=== PATIENT | female | born 1995 | race Caucasian/White ===

== ENCOUNTER 2018-05-04 17:19 | Inpatient (IN) | payer OTHER ==
[2018-04-08 05:25] VITALS: BMI 33.1
--- NOTE | 2018-05-04 18:19 | OBADHP ---
Datetime: 05/04/2018 18:06 Admit Comment, IP Provider: with IUP at 37+3 weeks, patient reports mild headache and contracti ons + FM, - LOF + CTX - VB denies chest pain, shortness of breath, N/V, visual complaints POB: 2012 feamle 6lb 3oz, 2013 male 8lb 11oz, denies any complcations in prior pregnancies PGYN: LMP 08/19/17, denies STIs, normal paps PMH: anxiety, unknown cardiac history though reports she is undergoing evaluation with Dr. Adalberto Gutiérrez with [facility] PSH: tonsilectomy in childhood family history: multiple members with anxiety and depression, paternal grandmother with cervical c ancer NKDA Meds: PNV, was taking anxiety med - unknown name - stopped in prengnacy SVE: 1/L/P DTRs normal Plan: IOL for gHTN with cervidil prenatals pending EFM/TOCO/NPO tylenol PRN headache PIH labs pain medicaion/epidural PRN case reviewed with Dr. Carolina Villarreal plan of care explained to patient and family at bedside Pelvic Type - PN: Adequate Extremities - PN: Normal Abdomen - PN: Normal Back - PN: Normal Breast - PN: Not Done Lungs - PN: Not Done Heart - PN: Normal Thyroid - PN: Not Done Neurologic - PN: Normal HEENT - PN: Normal General - PN: Normal FHR - Baseline A Provider: 140s Vital Signs Provider: Reviewed IP Chief Complaint: Uterine contractions; Signs/Symptoms Gestational HTN NICHD Variability Prov Fetus A: Moderate 6-25bpm NICHD Accel Fetus A IP Provider: 15X15 FHR Category Provider Fetus A: Category I Dilatation, Provider: 1 Effacement, Provider: long Station, Provider: post Genitourinary Exam: Normal DTRs - PN: Normal EGA AdmitDate IP: 37.3 IP Adm Impression: Term, intrauterine IP Admit Plan: Admit to unit; Initiate labor induction protocol Datetime: 04/08/2018 06:27 Presentation-Admit: Vertex Membranes, Provider: Intact Contraction Comments Provider: irritiablity Comments, ACOG Physical Exam: BACK no CVA abd; soft, nt, no papapbel ctx, no guarind, no reoubnd tendner o rigityd, no rutierin tenrnedere Gestation - Est Wks by US: 33.5 NICHD Decel Fetus A IP Provider: None
[2018-05-04] MEDS: Lactated Ringer's 1,000 ML IV SCH (18:35)
--- NOTE | 2018-05-04 19:07 | OBPN ---
Datetime: 05/04/2018 18:06 IP Progress Impression: Normal progression of labor IP Informed Consent Obtain: Induction of Labor IP Procedures: Sterile Vag Exam IP Progress Plan: Continue present management FHR - Baseline A Provider: 140s IP Progress Note Comment: cervidil placed at 7am all questions answered continue EFM/TOCO labs drawn, results pending cont current plan Vital Signs Provider: Reviewed NICHD Accel Fetus A IP Provider: 15X15 FHR Category Provider Fetus A: Category I NICHD Variability Prov Fetus A: Moderate 6-25bpm Dilatation, Provider: 1 Effacement, Provider: long Station, Provider: post Datetime: 04/08/2018 06:27 Membranes, Provider: Intact Contraction Comments Provider: irritiablity Gestation - Est Wks by US: 33.5 Presentation-Admit: Vertex NICHD Decel Fetus A IP Provider: None
[2018-05-04 19:55] LABS: BASO # 0.1 K/uL (0.0-0.2); BASO % 0.6 % (0.0-2.0); EOS % 0.3 % (0.0-4.0); HEMOGLOBIN 9.9 g/dL (11.0-16.0); LYMPH # 1.4 K/uL (1.0-4.3); LYMPH % 13.1 % (20.0-40.0); MEAN CELL VOLUME 79.3 fL (81.0-99.0); MEAN CORPUSCULAR HEMOGLOBIN 26.3 pg (27.0-31.0); MEAN CORPUSCULAR HGB CONC 33.2 g/dL (33.0-37.0); MEAN PLATELET VOLUME 9.8 fL (7.2-11.7); MONO # 0.7 K/uL (0.0-0.8); MONO % 6.3 % (0.0-10.0); NEUT # 8.5 K/uL (1.8-7.0); NEUT % 79.7 % (50.0-75.0); NRBC % 0.1 % (0.0-2.0); RBC 3.77 Mil/uL (3.80-5.20); RED CELL DISTRIBUTION WIDTH 15.3 % (11.5-14.5); WHITE BLOOD COUNT 10.7 K/uL (4.8-10.8)
[2018-05-04 20:02] LABS: SQUAMOUS EPITHIAL 19 /hpf (0-5); URINE BACTERIA OCC (<OCC); URINE BILIRUBIN NEGATIVE (NEGATIVE); URINE BLOOD NEGATIVE (NEGATIVE); URINE CLARITY Hazy (Clear); URINE COLOR Yellow (YELLOW); URINE GLUCOSE (UA) NORMAL (Normal); URINE LEUKOCYTE ESTERASE 1+ Leu/uL (Negative); URINE PROTEIN NEGATIVE (NEGATIVE); URINE UROBILINOGEN NORMAL mg/dL (0.2-1.0)
[2018-05-04 20:04] LABS: INR 1.1; PROTHROMBIN TIME 11.7 SECONDS (9.7-12.2)
[2018-05-04 20:14] LABS: ALB/GLOB RATIO 1.2 (1.0-2.1); ALBUMIN 3.8 g/dL (3.5-5.0); ALT/SGPT 14 U/L (9-52); AST/SGOT 17 U/L (14-36); BLOOD UREA NITROGEN 6 mg/dL (7-17); CALCIUM 9.4 mg/dl (8.6-10.4); GFR NON-AFRICAN AMERICAN > 60; URIC ACID 4.1 mg/dL (2.2-7.5)
[2018-05-04 20:21] LABS: BARBITURATES, UR NEGATIVE (NEGATIVE); BENZODIAZEPINES, UR NEGATIVE (NEGATIVE); OPIATES, UR NEGATIVE (NEGATIVE); PHENCYCLIDINE, UR NEGATIVE (NEGATIVE)
[2018-05-04 21:37] LABS: HEPATITIS B SURFACE AG Negative (NEGATIVE)
[2018-05-04] MEDS ORDERED: Nalbuphine HCL 10 mg/ml Ampule IVP ONE (22:34)
[2018-05-04] MEDS ORDERED: DiphenhydrAMINE 50 mg/ml Inj IVP STA ×2 (22:37→22:45)
[2018-05-04] MEDS ORDERED: DiphenhydrAMINE 50 mg/ml Inj ONE (22:50)
[2018-05-04] MEDS ORDERED: Nalbuphine HCL 10 mg/ml Ampule ONE (22:50)
[2018-05-05] MEDS ORDERED: Bupivacaine HCl/FentaNYL Cit 100 ML EPI ONE ×2 (01:33→08:25)
--- NOTE | 2018-05-05 09:07 | OBPN ---
Datetime: 05/05/2018 08:59 IP Progress Impression: Normal progression of labor IP Progress Plan: Continue present management Membranes, Provider: Intact Contraction Comments Provider: q 5 min FHR - Baseline A Provider: 135 Gestation - Est Wks by US: 37.4 Presentation-Admit: Vertex IP Progress Note Comment: pt seen and exmiend for pogresoisn of labor with intermitte headav, no blurry viso, ruq/egpait tender vs as apbbe a/p @ 37.4 wks GA iol for gestaitnal hyperient ervidl removed for cytoel s/pe pdiurla conto to cand emf vs cont vurren mante Vital Signs Provider: Reviewed FHR Category Provider Fetus A: Category I Dilatation, Provider: 2 Effacement, Provider: 50 Station, Provider: -3 NICHD Decel Fetus A IP Provider: None
[2018-05-05 09:17] LABS: CK-MB < 0.22 ng/mL (0.0-3.38)
[2018-05-05] MEDS ORDERED: Oxytocin 30 UNIT 30 UNITS/500 ML BAG IV SCH (11:15)
[2018-05-05] MEDS ORDERED: Oxytocin 30 UNIT 30 UNITS/500 ML BAG IV ONE (11:53)
--- NOTE | 2018-05-05 15:06 | OBDS ---
DELIVERY PERSONNEL Delivery Doctor: Bronwyn Villarreal MD MATERNAL INFORMATION Delivery Anesthesia: Epidural Provider Comments: pt was fully dilated and pushing. atrumatic, sponatneous delivery of head in LANA positin. Nuchal cord x 1 reduced. Atrauatmic, spontaneous delivery of anterior followed by posterior shoulder followed by delivery of the body. Both oral and nasal passages of the baby were bulb suction ed. umbilcal cord was clamped adn cut adn baby was handed to [facility] on abdomen with RN assistance. Co rd blood and cord gases collectd and sent x 2. Spontaneous delivery of intact placenta with membranes . Fundus firm, good hemostasis. intact perineum.No complications live female apgars 9,9 ebl 200ml no complications LABOR SUMMARY EDC: 05/22/2018 00:00 No. Babies in Womb: 1 Attempted: No Labor Anesthesia: Epidural LABOR INFORMATION Complete Dilatation: 05/05/2018 14:45 Cervical Ripening Agents: Cytotec @ (Annotations: 25) Oxytocin: Augmentation Steroids Given: None Reason Steroids Not Administered: Not Applicable MEMBRANES Membranes Rupture Method: Artificial Rupture of Membranes: 05/05/2018 12:29 Length of Rupture (hrs): 2.37 Amniotic Fluid Color: Bloody Amniotic Fluid Amount: Small STAGES OF LABOR Stage 2 hrs: 0 Stage 2 min: 6 Stage 3 hrs: 0 Stage 3 min: 5 BABY A INFORMATION Delivery Date/Time: 05/05/2018 14:51 Method of Delivery: Vaginal Born in Route : No : N/A Forceps: N/A Vacuum Extraction: N/A Shoulder Dystocia : No SHOULDER DYSTOCIA BABY A Delivery Date/Time: 05/05/2018 14:51 PRESENTATION/POSITION BABY A Presentation: Cephalic Cephalic Presentation: Vertex PLACENTA INFORMATION BABY A Placenta Delivery Time : 05/05/2018 14:56 Placenta Method of Delivery: Spontaneous Placenta Status: Delivered SCORES BABY A Heart Rate 1 min: >100 bpm Resp Effort 1 min: Good Cry Reflex Irritability 1 min: Cough or Sneeze or Pulls Away Muscle Tone 1 min: Active Motion Color 1 min: Body Star[place]rick, Extremities Blue Resuscitation Effort 1 min: Tactile Stimulation SCORE 1 MIN: 9 Heart Rate 5 min: >100 bpm Resp Effort 5 min: Good Cry Reflex Irritability 5 min: Cough or Sneeze or Pulls Away Muscle Tone 5 min: Active Motion Color 5 min: Body Starbrick, Extremities Blue SCORE 5 MIN: 9 INFORMATION BABY A Gestational Age at Delivery: 37.4 Gestational Status: IDENTIFICATION/MEDS BABY A ID Band Number: [id number] Sensor Number: [id number] WEIGHT/LENGTH BABY A Birthweight (gms): 2660 Infant Weight (lb): 5 Weight (oz): 14 Length Inches: 18.00 Infant Length cms: 45.7 CORD INFORMATION BABY A No. Cord Vessels: 3 Nuchal Cord : Around Neck x1, Loose Suction: Mouth
[2018-05-05] MEDS: Benzocaine/Menthol 20%-0.5% Topical Spray (60 ml) TOP SCH (17:27)
[2018-05-05] MEDS: Lactated Ringer's 1,000 ML IV SCH (17:55)
[2018-05-05] MEDS: Oxycodone/Acetaminophen 5/325 mg Tab PO PRN (23:43)
[2018-05-06] MEDS: Oxycodone/Acetaminophen 5/325 mg Tab PO PRN ×4 (07:35→23:02)
[2018-05-06 08:34] LABS: BASO # 0.1 K/uL (0.0-0.2); BASO % 0.4 % (0.0-2.0); EOS # 0.1 K/uL (0.0-0.7); EOS % 0.9 % (0.0-4.0); LYMPH # 2.2 K/uL (1.0-4.3); LYMPH % 14.7 % (20.0-40.0); MEAN CELL VOLUME 79.7 fL (81.0-99.0); MEAN CORPUSCULAR HEMOGLOBIN 25.8 pg (27.0-31.0); MEAN CORPUSCULAR HGB CONC 32.4 g/dL (33.0-37.0); MEAN PLATELET VOLUME 9.7 fL (7.2-11.7); MONO # 1.2 K/uL (0.0-0.8); MONO % 8.1 % (0.0-10.0); NEUT # 11.4 K/uL (1.8-7.0); NEUT % 75.9 % (50.0-75.0); RBC 3.49 Mil/uL (3.80-5.20); RED CELL DISTRIBUTION WIDTH 15.3 % (11.5-14.5); WHITE BLOOD COUNT 15.1 K/uL (4.8-10.8)
--- NOTE | 2018-05-06 09:58 | OBPPN ---
Datetime: 05/06/2018 09:56 PP Pain Prov: Within normal limits PP Nausea Prov: Denies PP Flatus Prov: Yes PP Breasts Prov: Normal PP Heart Prov: Normal PP Lungs Prov: Normal PP Abdomen/Uterus Prov: Normal PP Lochia Prov: Normal PP Vulva/Perineum Prov: Normal PP CVA Tenderness Prov: Normal PP Extremities Prov: Normal PP C/S Incision Prov: Not Applicable PP Progress Prov: Normal PP Impression Prov: Normal progression PP Plan Prov: Continue present management PP Progress Note Prov: pt seen adn examied and reprots pain rlq controlld with medicaion. pt ambuiat n,b odiign, passing flatus, tolerated regular diet. pt denies nay fever, chills, nause, vomiting cp, sob VSS PE GEN NAD AAO x 3 RESP: CTAB: CVS:RRR< +S1/S2 ABDS: soft, NT/ND, +BS, no gurding ,no rebound tendenress ,no rigidity, no uterine tenderss Fundus: firm, below level of umbiulcs VE: minimal lohcia, non foul smelling EXT; no calf tenderness, negative dmitry's sign A/P s/p ppd #1 doign well pain mangnet soham juan encourage bresat feeidn adn ambluaiton Vital Signs Provider PP: Reviewed; Within Normal Limits
[2018-05-06] MEDS: Multiple Vitamins Tab PO SCH (10:52)
[2018-05-06] MEDS: Benzocaine/Menthol 20%-0.5% Topical Spray (60 ml) TOP SCH (23:04)
--- NOTE | 2018-05-07 04:08 | OBPPN ---
Datetime: 05/07/2018 04:03 PP Pain Prov: Within normal limits PP Nausea Prov: Denies PP Flatus Prov: Yes PP BM Prov: Yes PP Breasts Prov: Normal PP Heart Prov: Normal PP Lungs Prov: Normal PP Abdomen/Uterus Prov: Normal PP Lochia Prov: Normal PP Vulva/Perineum Prov: Normal PP CVA Tenderness Prov: Normal PP Extremities Prov: Normal PP C/S Incision Prov: Not Applicable PP Progress Prov: Normal PP Impression Prov: Normal progression PP Plan Prov: Discharge PP Progress Note Prov: pt seen adn examied and reprots pain rlq controlld with medicaion. pt ambulat ing, voiding, passing flatus, tolerated regular diet. pt denies any fever, chills, nause, vomiting cp , sob VSS PE GEN NAD AAO x 3 RESP: CTAB: CVS:RRR< +S1/S2 ABDS: soft, NT/ND, +BS, no gurding ,no rebound tendenress ,no rigidity, no uterine tenderness Fundus: firm, below level of umbiulcs VE: minimal lohcia, non foul smelling EXT; no calf tenderness, negative dmitry's sign A/P s/p ppd #2 doign well am [facility] social work consult dc home once cleared rto 6 week precuating iven Vital Signs Provider PP: Reviewed; Within Normal Limits
--- NOTE | 2018-05-07 04:08 | OBDCSUM ---
Datetime: 05/07/2018 04:05 Discharged to, Provider: Home Follow up at, Provider: Dr Villarreal Disch Instr Activity: Normal activity Disch Instr Diet: Regular Discharge Instructions, Provider: Routine instructions given Discharge Diagnosis, Provider: Term Delivered Discharge Time: 05/07/2018 04:05 Follow up in weeks, Provider: 6 weeks Disch Referrals: None Contraception discussed, Prov: Yes Disch Activity Restrictions: No sexual activity; Nothing in vagina - Ulysses, tampons, douche Discharge Comment, Provider: bp check with cardiolgy precuaiton given Contraception after Delivery: Not Planning to Use
[2018-05-07] MEDS: Benzocaine/Menthol 20%-0.5% Topical Spray (60 ml) TOP SCH ×2 (06:05→15:04)
[2018-05-07 07:20] LABS: BASO # 0.1 K/uL (0.0-0.2); BASO % 0.8 % (0.0-2.0); EOS # 0.2 K/uL (0.0-0.7); EOS % 1.4 % (0.0-4.0); HEMOGLOBIN 9.4 g/dL (11.0-16.0); LYMPH # 2.3 K/uL (1.0-4.3); LYMPH % 21.3 % (20.0-40.0); MEAN CELL VOLUME 79.1 fL (81.0-99.0); MEAN CORPUSCULAR HEMOGLOBIN 26.2 pg (27.0-31.0); MEAN CORPUSCULAR HGB CONC 33.1 g/dL (33.0-37.0); MEAN PLATELET VOLUME 9.9 fL (7.2-11.7); MONO # 0.8 K/uL (0.0-0.8); MONO % 7.2 % (0.0-10.0); NEUT # 7.4 K/uL (1.8-7.0); NEUT % 69.3 % (50.0-75.0); RBC 3.58 Mil/uL (3.80-5.20); RED CELL DISTRIBUTION WIDTH 15.2 % (11.5-14.5); WHITE BLOOD COUNT 10.7 K/uL (4.8-10.8)
--- NOTE | 2018-05-07 07:27 | CON ---
DATE: 05/05/2018 CARDIOLOGY CONSULTATION REASON FOR CONSULTATION: I was asked to see the patient because of chest pain. HISTORY OF PRESENT ILLNESS: The patient is a 22-year-old woman with no prior history of hypertension, diabetes, smoking, or alcohol use. The patient has had palpitations during her , and she was being evaluated as an outpatient. According to the patient, she had a one-week event monitor which did not reveal any arrhythmias. Echocardiogram was done which apparently was normal. The patient was being induced labor and started having chest discomfort, lasted for about half an hour to one hour. No associated symptoms of sweating, nausea, or vomiting. No shortness of breath. The patient delivered and she feels much better. She is comfortable, not in any distress. PAST MEDICAL HISTORY: Significant for the above. PERSONAL HISTORY: Does not smoke or drink. FAMILY HISTORY: No family history of coronary artery disease. REVIEW OF SYSTEMS: As above. All other systems are negative. PHYSICAL EXAMINATION: VITAL SIGNS: Blood pressure 110/70, pulse rate 80, respiratory rate 18. NECK: No jugular venous distention. LUNGS: Clinically clear. HEART: S1 and S2 ejection systolic murmur. ABDOMEN: Soft. No organomegaly or tenderness. EXTREMITIES: No edema of the legs. NEUROLOGIC: Extraocular movements are normal. Affect is normal. No cyanosis. LABORATORY DATA: EKG done early this morning showed normal sinus rhythm and nonspecific T-wave changes. Troponins are negative. ASSESSMENT AND PLAN: Cause of chest pain is unclear. Most likely noncardiac. For now, no cardiac recommendations. The patient will follow up with her primary staff reporter as an outpatient. Ajay Rose MD
[2018-05-07] MEDS: Multiple Vitamins Tab PO SCH (09:28)
--- NOTE | 2018-05-07 10:48 | CARD ---
APPROVED REPORT Date of service: 05/04/2018 EKG Measurement Heart [id number] <Conclusion> Sinus tachycardia Possible Left atrial enlargement ST & T wave abnormality, consider anterior ischemia Abnormal ECG
[2018-05-07 16:47] VITALS: BP 129/78; O2SAT 99
[2018-05-07] MEDS ORDERED: Influenza Vaccine 60 MCG/0.5 ML SYR (3 yr & up) IM ONE (19:16)
[2018-05-08 02:12] VITALS: PULSE 84; RESP 20; TEMP 97.5
== END 2018-05-07 21:30 | disposition home or self-care (01) | DRG 560 ==
LOC: C.EROB 17:19 → C.4D 18:22 → C.4M 05-05 16:57
PROVIDERS: ADMIT Obstetrics & Gynecology; ATTEND Obstetrics & Gynecology
PROC: 3E0P7VZ Introduction of Hormone into Female Reproductive, Via Natural or Artificial Opening (ICD-10-PCS; principal; 2018-05-04)
PROC: 10E0XZZ Delivery of Products of Conception, External Approach (ICD-10-PCS; 2018-05-05)
DX: O13.4 Gestational [pregnancy-induced] hypertension without significant proteinuria, complicating childbirth (principal); O69.81X0 Labor and delivery complicated by cord around neck, without compression, not applicable or unspecified; Z37.0 Single live birth; Z3A.37 37 weeks gestation of pregnancy